=== PATIENT | male | born 1975 | race Caucasian/White ===

== ENCOUNTER 2017-07-18 09:23 | Emergency (ER) | payer BC ==
[2017-07-18] MEDS ORDERED: Aspirin 81 MG Tab.Chew PO ONE (10:21)
[2017-07-18] MEDS ORDERED: Sodium Chloride 0.9% 10 ML Syringe FLUSH PRN (10:22)
[2017-07-18] MEDS ORDERED: Potassium Chloride 20 MEQ Tab.ER PO ONE ×2 (11:03→11:05)
--- NOTE | 2017-07-19 09:17 | CR ---
INDICATION: Chest pain. CHEST: A single portable AP upright view of the chest revealed the heart to be normal in size and shape. Mediastinum and bony thorax were unremarkable. An active infiltrate, effusion, or pneumothorax was not identified. IMPRESSION: No active disease. MTDD
--- NOTE | 2017-07-23 09:12 | ER ---
DATE SEEN: 07/18/2017 TIME SEEN: 0945 hours. HISTORY OF PRESENT ILLNESS: This patient is known to have a disease with 3 initials, he is not sure what it is. After discussion with S[employer]'s elementary school tutor, Dr. 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 He says it comes and goes. He has been advised he has arrangements made for electrophysiological studies on August 14, 2017, at [facility]. He complained that he wanted to get in to see the doctor earlier. He has been very anxious. He does not have any IHSS. He knows he has heart murmur and his "heart throbs". There is a "pressure-like throbbing" intermittently. He notes a tightness and sweating and shortness of breath when this occurs. He has had episodes of tachycardia yesterday and today. He is not sure if he is supposed to get an ablation for this. His thought he is supposed to have an ablation. He had trouble sleeping because of his palpitations. He has not slept very well for the last two nights and has a cough that has been worse, but is not more productive. His heart has been racing more frequently on a daily basis. In the past, it used to be once a week or several times a month. Now the racing comes every day. 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 REVIEW OF SYSTEMS: As noted above. The patient denies sore throat, recent sinus infections, sinus congestion. CARDIORESPIRATORY: As noted above. He has noticed a little shortness of breath when he is anxious, but his anxiety episodes are coming more frequently and the tachycardia episodes more frequently. With this, he has shortness of breath and coughing. Non-productive cough. GI: Denies abdominal pain, nausea, vomiting, diarrhea, constipation, reflux, or acid peptic disease. : Denies symptoms of frequency, urgency, or dysuria. MUSCULOSKELETAL: Intact. He has an elaborate explanation of what is going on. He works at a [employer], a [employer]. He has not fallen down or lost consciousness or fallen onto machines. He has anxiety. Dr. Grace notes he has had anxiety for several years. He keeps wondering when he is going to have a heart attack because of the anxiety and fast heart rate. A call to Dr. Grace noted that he has had two EKGs which demonstrated WPW, on June 28, 2017. He has no arrhythmias otherwise noted on other occasions with Holter monitors. He has had ultrasound of the heart, which did not demonstrate structural abnormalities, last was done on July 09, 2015. The ejection fraction was 62%. No valvular abnormalities. No pulmonary hypertension. Review of systems otherwise negative except as noted above. PHYSICAL EXAMINATION: VITAL SIGNS: Blood pressure 147/98, heart rate 90, respirations 21, oxygen saturation 96%. Regular heart rate. GENERAL: The patient is alert, anxious, unshaven. His is more anxious than he is. HEENT: PERRLA intact. Pharynx without abnormality. Gait is appropriate. Eyegrounds normal. No AV nicking. Pharynx without abnormality. Nose, odor of smoke in his breath. LUNGS: Clear without rales, rhonchi, or wheezes. HEART: S1, S2. No irregular rate and rhythm. No tachycardia. ABDOMEN: Soft. No guarding. No abdominal discomfort. EXTREMITIES: Without edema. Deep tendon reflexes normal in upper and lower extremities. Cranial nerves 2 through 12 intact. Gait intact. Romberg is negative. Strength is normal. EKG did not demonstrate delta waves today. No tachycardia noted, ischemia pattern noted. LABORATORY FINDINGS: White count is normal 5100, PMNs 67, lymphocytes 30, monos 8, eosinophils 4, hemoglobin 15, and platelets 195,000. D-dimer is less than 100. Troponin is less than 0.017 and is normal. Has elevated AST 34, ALT is 66, alkaline phosphatase 143, otherwise potassium is low at 3.2 and chloride is low at 99, sodium 137, BUN is 16, creatinine 1.1, GFR 60, glucose 203. ASSESSMENT: The patient's EKG is normal. Sinus rhythm. The patient has Ugnyv-Bwbnmdnal-Iwrja. His previously documented delta waves on EKGs from May 29, 2015. I talked with Dr. Grace, elementary school tutor, spoke to her on the phone, and she felt these episodes of fast heart rate are probably secondary to anxiety. He had normal ejection fraction, normal echo and no structural heart disease. She felt what triggered these attacks probably are related to anxiety. She did not recommend changing medicines or starting a new medicine. Trazodone is okay to consider. Add citalopram for his depression, as it might decrease the anxiety. The patient has an appointment with barrelhead inspector, Dr. Damon on 08/14/2017. He is very fortunate to have been given this appointment. At this point, no plan to repeat the Holter monitoring. The patient reassured. I did not tell him that he is getting an antidepressant, but trazodone is an antidepressant. He was told that Trazodone will decrease the anxiety. (Potentially, trazodone could increase his heart rate.) If he experiences tachycardia, he should desists from using it. ASSESSMENT: 1. Anxiety. 2. Smoker. 3. Itecm-Qsdnpvtnm-Whpxo with slow atrial fibrillation. 4. Hypochloremia and hypokalemia. PLAN: 1. Potassium supplements 20 mEq b.i.d. for 2 weeks. Follow up with doctor in a week, recheck electrolytes. 2. Follow his magnesium closely. If it is low, then he should have it replaced. Magnesium is normal at 1.8 today, low-normal. /[id number] RADHA/MAYRA
== END 2017-07-18 11:37 | disposition home or self-care (01) ==
LOC: FB.ED 09:23
DX: I45.6 Pre-excitation syndrome (principal); I48.91 Unspecified atrial fibrillation; E87.8 Other disorders of electrolyte and fluid balance, not elsewhere classified; E87.6 Hypokalemia; F41.9 Anxiety disorder, unspecified; F17.290 Nicotine dependence, other tobacco product, uncomplicated
CPT/HCPCS: 36415; 71010; 80053; 83735; 84484; 85025; 85379; 93005; 99285; A9270; J7050

== ENCOUNTER 2018-11-10 10:00 | Emergency (ER) | payer BC ==
[2018-11-10] MEDS ORDERED: Sodium Chloride 0.9% 10 ML Syringe FLUSH PRN (10:17)
[2018-11-10] MEDS ORDERED: Sodium Chloride 0.9% 1,000 ML IV ONE (10:20)
--- NOTE | 2018-11-10 10:28 | EDM.PDOC ---
ED HPI GENERAL MEDICAL PROBLEM - General Chief Complaint: Cardiovascular Problem Stated Complaint: CHEST PAIN Time Seen by Provider: 11/10/18 10:05 Source of Information: Reports: Patient History Limitations: Reports: No Limitations - History of Present Illness INITIAL COMMENTS - FREE TEXT/NARRATIVE: 43 yo male who has hx of WPW treated with cardiac ablation who has had continual chest pain on left side that is pressure and throbbing and has not changed since 08/2017. He is also having lightheadedness with near syncope that is not related to position or activity that began of last week and was present thru the weekend and seems to be worse today. Chest pain is 3/10 level with no radiation. No shortness of breath. Taking po well. Somewhat better lying down. Has been eating and drinking normally. No other associated s/s. No other modifying factors. Onset: Other (pt with continual pain since surgery on 08/2017 that has not changed and is always present but waxes and wanes) Duration: Other (as above) Location: Reports: Chest (left) Quality: Reports: Pressure, Throbbing Severity: Mild Improves with: Reports: None Worsens with: Reports: None Context: Reports: Other (present all the time with no exacerbating or alleviating factors) Associated Symptoms: Reports: Weakness, Other (near syncope; lightheaded) Treatments COACH OPERATOR: Reports: Other (see below) (nothing) Left Chest Pain Score (Numeric/FACES): 2 - Related Data Allergies Allergy/AdvReac Type Severity Reaction Status Date / Time No Known Allergies Allergy Verified 11/10/18 10:07 Home Meds: Home Meds Hydrochlorothiazide 25 mg PO DAILY 07/18/17 [History] Fish Oil/Thurmont-3 Fatty Acids [Fish Oil 1,000 MG] 1 gm PO DAILY 11/10/18 [History ] Past Medical History Cardiovascular History: Reports: Hypertension, Other (See Below) (wpw) Other Cardiovascular History: WPW Other Musculoskeletal History: Has congenital L hand deformity. - Past Surgical History HEENT Surgical History: Reports: Oral Surgery Other Cardiovascular Surgeries/Procedures: Ablation surgery for WPW, 08/2017. Social & Family History - Family History Cardiac: Reports: CAD (in grandparents in 60's), Hypertension - Tobacco Use Smoking Status *Q: Current Every Day Smoker - Caffeine Use Caffeine Use: Reports: Coffee - Alcohol Use Alcohol Use History: Yes Alcohol Use in Last Twelve Months: Yes Alcohol Use Comment: occasional ED ROS GENERAL - Review of Systems Review Of Systems: See Below Constitutional: Reports: Weakness, Fatigue HEENT: Reports: No Symptoms Respiratory: Reports: Cough (chronic). Denies: Shortness of Breath Cardiovascular: Reports: Chest Pain Endocrine: Reports: Fatigue GI/Abdominal: Reports: Nausea. Denies: Vomiting : Reports: No Symptoms Musculoskeletal: Reports: No Symptoms Skin: Reports: No Symptoms Neurological: Reports: Other (near syncope/lightheaded). Denies: Headache, Trouble Speaking, Difficulty Walking Psychiatric: Reports: No Symptoms Hematologic/Lymphatic: Reports: No Symptoms Immunologic: Reports: No Symptoms ED EXAM, GENERAL - Physical Exam Exam: See Below Exam Limited By: No Limitations General Appearance: Alert, WD/WN, Anxious Eye Exam: Bilateral Eye: EOMI, PERRL Ears: Normal External Exam Ear Exam: Bilateral Ear: Auricle Normal Nose: Normal Inspection, Normal Mucosa, No Blood Throat/Mouth: Normal Inspection, Normal Lips, Normal Voice, No Airway Compromise Head: Atraumatic, Normocephalic Neck: Normal Inspection, Supple, Non-Tender Respiratory/Chest: No Respiratory Distress, Lungs Clear, Normal Breath Sounds, No Accessory Muscle Use, Chest Non-Tender Cardiovascular: Normal Peripheral Pulses, Regular Rate, Rhythm, No Edema, No Gallop, No JVD, No Murmur, No Rub Peripheral Pulses: 2+: Radial (L), Radial (R), Dorsalis Pedis (L), Dorsalis Pedis (R) GI/Abdominal: Normal Bowel Sounds, Soft, Non-Tender, No Organomegaly, No Distention, No Abnormal Bruit, No Mass, Pelvis Stable Back Exam: Normal Inspection, Full Range of Motion Extremities: Normal Range of Motion, Non-Tender, No Pedal Edema, Normal Capillary Refill, Other (congenital deformity left arm) Neurological: Alert, Oriented, CN II-XII Intact, Normal Cognition, No Motor/ Sensory Deficits Psychiatric: Anxious Skin Exam: Warm, Dry, Intact, Normal Color, No Rash Lymphatic: No Adenopathy EKG INTERPRETATION Rhythm: NSR (rate of 100) [place]: Normal P-Wave: Present QRS: Normal ST-T: Normal QT: Normal Course - Vital Signs Last Recorded V/S: Last Vital Signs Temp 36.8 C 11/10/18 10:00 Pulse Resp 20 11/10/18 10:00 BP 152/100 H 11/10/18 10:00 Pulse Ox 97 11/10/18 10:00 Orthostatic Blood Pressure [ 130/85 Standing] Orthostatic Blood Pressure [ 129/86 Sitting] Orthostatic Blood Pressure [ 123/82 Supine] - Orders/Labs/Meds Orders: Active Orders 24 hr Category Date Time Status EKG Documentation Completion [RC] ASDIRECTED Care 11/10/18 10:19 Active Sodium Chloride 0.9% [Saline Flush] Med 11/10/18 10:17 Active 10 ml FLUSH ASDIRECTED PRN Peripheral IV Insertion Adult [OM.PC] Routine Oth 11/10/18 10:17 Ordered EKG 12 Lead [EK] Routine Ther 11/10/18 10:17 Ordered Medication Orders Sodium Chloride (Saline Flush) 10 ml FLUSH ASDIRECTED PRN PRN Reason: Keep Vein Open Labs: Laboratory Tests 11/10/18 11/10/18 11/10/18 Range/Units 10:40 10:40 10:40 WBC 6.7 (4.5-12.0) X10-3/uL RBC 4.81 (4.30-5.75) x10(6)uL Hgb 14.9 (13.5-17.8) g/dL Hct 43.3 (30.0-51.3) % MCV 89.9 (80-96) fL MCH 31.0 (27.7-33.6) pg MCHC 34.5 (32.2-35.4) g/dL RDW 13.0 (11.5-15.5) % Plt Count 177 (125-369) X10(3)uL MPV 9.7 (7.4-10.4) fL Neut % (Auto) 56.5 (46-82) % Lymph % (Auto) 31.1 (13-37) % [place] % (Auto) 8.3 (4-12) % Eos % (Auto) 3 (1.0-5.0) % Baso % (Auto) 1 (0-2) % Neut # (Auto) 3.7 (1.6-8.3) # Lymph # (Auto) 2.1 (0.6-5.0) # [place] # (Auto) 0.6 (0.0-1.3) # Eos # (Auto) 0.2 (0.0-0.8) # Baso # (Auto) 0.1 (0.0-0.2) # D-Dimer, Quantitative < 0.19 (0.0-0.59) mg/LFEU Sodium 137 (135-145) mmol/L Potassium 4.4 D (3.5-5.3) mmol/L Chloride 100 (100-110) mmol/L Carbon Dioxide 31 (21-32) mmol/L BUN 20 H (7-18) mg/dL Creatinine 0.9 (0.70-1.30) mg/dL Est Cr Clr Drug Dosing TNP Estimated GFR (MDRD) > 60 (>60) BUN/Creatinine Ratio 22.2 H (9-20) Glucose 91 D (80-116) mg/dL Calcium 9.4 (8.6-10.2) mg/dL Magnesium 1.8 (1.8-2.5) mg/dL Total Bilirubin 0.3 (0.1-1.3) mg/dL AST 20 D (5-25) IU/L ALT 52 H D (12-36) U/L Alkaline Phosphatase 103 (56-112) IU/L Troponin I (<0.017-0.056) ng/mL C-Reactive Protein (0.5-0.9) mg/dL Total Protein 7.4 (6.0-8.0) g/dL Albumin 4.0 (3.5-5.2) g/dL Globulin 3.4 g/dL Albumin/Globulin Ratio 1.2 TSH, Ultra Sensitive (0.36-3.74) IU/mL 11/10/18 Range/Units 10:40 WBC (4.5-12.0) X10-3/uL RBC (4.30-5.75) x10(6)uL Hgb (13.5-17.8) g/dL Hct (30.0-51.3) % MCV (80-96) fL MCH (27.7-33.6) pg MCHC (32.2-35.4) g/dL RDW (11.5-15.5) % Plt Count (125-369) X10(3)uL MPV (7.4-10.4) fL Neut % (Auto) (46-82) % Lymph % (Auto) (13-37) % [place] % (Auto) (4-12) % Eos % (Auto) (1.0-5.0) % Baso % (Auto) (0-2) % Neut # (Auto) (1.6-8.3) # Lymph # (Auto) (0.6-5.0) # [place] # (Auto) (0.0-1.3) # Eos # (Auto) (0.0-0.8) # Baso # (Auto) (0.0-0.2) # D-Dimer, Quantitative (0.0-0.59) mg/LFEU Sodium (135-145) mmol/L Potassium (3.5-5.3) mmol/L Chloride (100-110) mmol/L Carbon Dioxide (21-32) mmol/L BUN (7-18) mg/dL Creatinine (0.70-1.30) mg/dL Est Cr Clr Drug Dosing Estimated GFR (MDRD) (>60) BUN/Creatinine Ratio (9-20) Glucose (80-116) mg/dL Calcium (8.6-10.2) mg/dL Magnesium (1.8-2.5) mg/dL Total Bilirubin (0.1-1.3) mg/dL AST (5-25) IU/L ALT (12-36) U/L Alkaline Phosphatase (56-112) IU/L Troponin I < 0.017 L (<0.017-0.056) ng/mL C-Reactive Protein 0.6 (0.5-0.9) mg/dL Total Protein (6.0-8.0) g/dL Albumin (3.5-5.2) g/dL Globulin g/dL Albumin/Globulin Ratio TSH, Ultra Sensitive 0.93 (0.36-3.74) IU/mL Meds: Medications Generic Name Dose Route Start Last Admin Trade Name Freq PRN Reason Stop Dose Admin Sodium Chloride 10 ml 11/10/18 10:17 Saline Flush FLUSH ASDIRECTED PRN Keep Vein Open Discontinued Medications Generic Name Dose Route Start Last Admin Trade Name Freq PRN Reason Stop Dose Admin Sodium Chloride 1,000 mls @ 999 mls/hr 11/10/18 10:20 11/10/18 10:18 Normal Saline IV 11/10/18 11:20 999 mls/hr .BOLUS ONE Administration Ondansetron HCl 4 mg 11/10/18 10:46 11/10/18 11:13 Zofran IVPUSH 11/10/18 10:47 4 mg ONETIME ONE Administration - Re-Assessments/Exams Free Text/Narrative Re-Assessment/Exam: 11/10/18 11:00: One half IV fluids have been infused. The patient feels somewhat better. EKG was normal. Lab tests are pending at this point. Will reevaluate patient after lab tests are back. Free Text/Narrative Re-Assessment/Exam: 11/10/18 11:36: Lab tests are all back and appear essentially normal. The troponin was negative. The d-dimer was negative. His BUN was elevated and this with his exam supports some dehydration. This associated with anxiety may have been causing his lightheadedness and near syncope. I am unsure why he is having the chest pain. It is long-standing and does not appear to be related to his heart. With continual pain ongoing for basically months, I feel a negative troponin has ruled out an OR. The negative d-dimer has ruled out pulmonary embolus. He has an appointment with his wood mechanist tomorrow at 3:45 PM. I will advise him to keep that appointment for reevaluation. The plan will be for discharge at this point with him increasing his fluid intake and resting today. No work until he has been cleared by his wood mechanist. He and his significant other are in agreement with this plan for discharge and follow-up. He is advised to come back for worsening chest pain, syncope or any other concerning sign or symptom. Departure - Departure Time of Disposition: 11:40 Disposition: Home, Self-Care 01 Condition: Good Clinical Impression: Near syncope, Anxiety, Dehydration Chest pain Qualifiers: Chest pain type: unspecified Qualified Code(s): R07.9 - Chest pain, unspecified Instructions: Nonspecific Chest Pain, [id number]-[id number], Near-Syncope Referrals: Poly Garza NP [Primary Care Provider] - Forms: ED Department Discharge Additional Instructions: Your blood tests were reassuringly normal. Your EKG was normal. You did appear to be dehydrated and the IV fluids seemed to have helped your symptoms. Rest. Increase your fluid intake. Eat well-balanced meals. No work until cleared by your wood mechanist. Keep your appointment with your wood mechanist tomorrow as you have scheduled. Back to the emergency department for worsening pain, pass out spells, severe headache, localized area of weakness or any other concerning sign or symptom. - My Orders Last 24 Hours: My Active Orders 11/10/18 10:17 Sodium Chloride 0.9% [Saline Flush] 10 ml FLUSH ASDIRECTED PRN Peripheral IV Insertion Adult [OM.PC] Routine EKG 12 Lead [EK] Routine 11/10/18 10:19 EKG Documentation Completion [RC] ASDIRECTED - Assessment/Plan Last 24 Hours: My Active Orders 11/10/18 10:17 Sodium Chloride 0.9% [Saline Flush] 10 ml FLUSH ASDIRECTED PRN Peripheral IV Insertion Adult [OM.PC] Routine EKG 12 Lead [EK] Routine 11/10/18 10:19 EKG Documentation Completion [RC] ASDIRECTED
[2018-11-10] MEDS ORDERED: Ondansetron 4 MG/2 ML SDV IVPUSH ONE (10:46)
== END 2018-11-10 11:55 | disposition home or self-care (01) ==
LOC: FB.ED 10:00
DX: F41.9 Anxiety disorder, unspecified (principal); E89.0 Postprocedural hypothyroidism; F17.200 Nicotine dependence, unspecified, uncomplicated; Z79.899 Other long term (current) drug therapy
CPT/HCPCS: 36415; 80053; 83735; 84443; 84484; 85025; 85379; 86140; 93005; 96361; 96374; 99285-25; J2405; J7030